=== PATIENT | male | born 1965 | race Two or more races ===

== ENCOUNTER 2017-03-30 13:27 | Emergency (ER) | payer OTHER ==
[~2017-03-30] VITALS: Ht 172.7 cm; Wt 81.6 kg
[2017-03-30 13:27] VITALS: BP 144/82
[2017-03-30] MEDS ORDERED: predniSONE 20 MG TABLET ONE (13:44)
[2017-03-30] MEDS ORDERED: predniSONE 20 MG TABLET PO ONE (14:00)
[2017-03-30] MEDS ORDERED: hydrOXYzine PAMOATE 25 MG CAPSULE PO ONE (14:00)
== END 2017-03-30 13:55 | disposition home or self-care (01) ==
LOC: ER 13:31
DX: L50.9 Urticaria, unspecified (principal); F17.200 Nicotine dependence, unspecified, uncomplicated
CPT/HCPCS: A4606; Q0177; Z7610

== ENCOUNTER 2018-02-22 18:37 | Emergency (ER) | payer OTHER ==
[~2018-02-22] VITALS: Ht 172.7 cm; Wt 86.2 kg
[2018-02-22 18:37] VITALS: BP 171/91
[2018-02-22] MEDS ORDERED: HYDROCODONE/APAP 5/325MG 1 EACH TABLET ONE (19:04)
[2018-02-22] MEDS ORDERED: HYDROCODONE/APAP 5/325MG 1 EACH TABLET PO ONE (19:30)
== END 2018-02-22 19:16 | disposition home or self-care (01) ==
LOC: ER 18:39
DX: K08.89 Other specified disorders of teeth and supporting structures (principal); F17.200 Nicotine dependence, unspecified, uncomplicated; Z60.2 Problems related to living alone; Z98.890 Other specified postprocedural states
CPT/HCPCS: A4606; Z7610

== ENCOUNTER 2019-08-06 09:41 | Emergency (ER) | payer MEDICAID, OTHER ==
[~2019-08-06] VITALS: Ht 172.7 cm; Wt 83.9 kg
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
--- NOTE | 2019-08-06 10:10 | NUR ---
dr tapia at bedside for eval.
[2019-08-06] MEDS ORDERED: HYDROMORPHONE 1 MG/1 ML DISP.SYRIN IM ONE (10:30)
--- NOTE | 2019-08-06 10:47 | NUR ---
pt to radiology for lumbar spinie ct scan via [facility].
--- NOTE | 2019-08-06 10:47 | NUR ---
Merle earl in [facility] - 08/06/19 at 1136 by MARYCRUZ pt to radiology for head ct scan via [facility].
[2019-08-06] MEDS ORDERED: HYDROMORPHONE 1 MG/1 ML DISP.SYRIN ONE (11:24)
[2019-08-06 12:14] VITALS: BP 128/78
--- NOTE | 2019-08-06 12:15 | NUR ---
Patient discharged to home in stable condition. Written and verbal after care instructions given. Patient verbalizes understanding of instruction.
== END 2019-08-06 12:14 | disposition home or self-care (01) ==
LOC: ER 09:45
DX: S39.012A Strain of muscle, fascia and tendon of lower back, initial encounter (principal); F17.200 Nicotine dependence, unspecified, uncomplicated; Z98.890 Other specified postprocedural states; Z60.2 Problems related to living alone; W01.0XXA Fall on same level from slipping, tripping and stumbling without subsequent striking against object, initial encounter; Y93.89 Activity, other specified; Y92.89 Other specified places as the place of occurrence of the external cause; Y99.8 Other external cause status
CPT/HCPCS: 72131; 96372; 99284; J1170